=== PATIENT | female | born 1960 | race Caucasian/White ===

== ENCOUNTER → 2017-03-08 | Outpatient (CLI) | payer BC ==
[2014-05-17 05:20] VITALS: BP 122/64
[~2017-03-08] MED LIST: METO100T5 PO; MULT-460 PO; VALS1TAB14 PO; probiotic
--- NOTE | 2017-03-08 13:23 | CARD ---
APPROVED REPORT EXAM: Two-dimensional and M-mode echocardiogram with Doppler and color Doppler. Other Information Quality : Good Rhythm : PVC's INDICATION Hypertension/HCVD Murmur 2D DIMENSIONS RVDd2.8 (2.9-3.5cm)Left Atrium(2D)3.2 (1.6-4.0cm) IVSd1.3 (0.7-1.1cm)Aortic Root(2D)2.7 (2.0-3.7cm) LVDd5.2 (3.9-5.9cm)LVOT Diameter2.2 (1.8-2.4cm) PWd1.1 (0.7-1.1cm)LVDs4.2 (2.5-4.0cm) FS (%) 19.8 %SV53.0 ml LVEF(%)45.0 (>50%) Aortic Valve AoV Peak Zeus.143.4cm/sAoV VTI29.6cm AO Peak GR.8.2mmHgLVOT Peak Zeus.74.3cm/s LVOT VTI 17.02cmAO Mean GR.5mmHg ALEXIS (VMAX)2.34gk5CXP (VTI)2.22cm2 Mitral Valve MV E Pecurhve428.5cm/sMV DECEL [id number] MV A Hvbroojq486.4cm/sMV MGD82qk E/A Ratio0.9MVA (PHT)3.43cm2 TDI E/Lateral E'16.2E/Medial E'20.1 Tricuspid Valve TR P. Tpinksxp380ke/sRAP SVSJBLYG4qdCr TR Peak Gr.91wnSdDBZT65okRj Pulmonary Vein S1 Tvmqvref71.9cm/sD2 Fwtosqdl49.4cm/s LEFT VENTRICLE The left ventricle is normal size. There is mild concentric left ventricular hypertrophy. The Ejectio n Fraction is low normal. EF 50-55%. Frequent PVC's and PAC's noted limiting accuracy of EF estimatio n. EF no lower than 45% Grossly normal wall motion. Transmitral Doppler flow pattern is Grade I-abnor mal relaxation pattern. RIGHT VENTRICLE The right ventricle is normal size. The right ventricular systolic function is normal. ATRIA The left atrium size is normal. The right atrium size is normal. The interatrial septum is intact wit h no evidence for an atrial septal defect or patent foramen ovale as noted on 2-D or Doppler imaging. AORTIC VALVE The aortic valve is normal in structure and function. Doppler and Color Flow revealed no significant aortic regurgitation. There is no significant aortic valvular stenosis. MITRAL VALVE The mitral valve is normal in structure and function. There is no evidence of mitral valve prolapse. There is no mitral valve stenosis. Doppler and Color-flow revealed trace mitral regurgitation. TRICUSPID VALVE The tricuspid valve is normal in structure and function. Doppler and Color Flow revealed trace tricus pid regurgitation. The PA pressure was estimated at 30 mmHg. There is no tricuspid valve stenosis. PULMONIC VALVE The pulmonary valve is normal in structure and function. Doppler and Color Flow revealed trace pulmon ic valvular regurgitation. There is no pulmonic valvular stenosis. GREAT VESSELS The aortic root is normal in size. The ascending aorta is normal in size. The IVC is normal in size a nd collapses >50% with inspiration. PERICARDIAL EFFUSION There is no evidence of significant pericardial effusion. Critical Notification Critical Value: No <Conclusion> The Ejection Fraction is low normal. EF 50-55%. Frequent PVC's and PAC's noted limiting accuracy of E F estimation. EF no lower than 45%
== END | disposition home or self-care (01) ==
LOC: ECHO 08:44
PROVIDERS: ATTEND Internal Medicine Cardiovascular Disease
DX: I08.1 Rheumatic disorders of both mitral and tricuspid valves (principal); R01.1 Cardiac murmur, unspecified
CPT/HCPCS: 93306

== ENCOUNTER → 2018-09-14 | Outpatient (CLI) | payer BC ==
[2014-05-17 05:20] VITALS: BP 122/64
[2018-09-14 11:15] LABS: CHOLESTEROL/HDL RATIO 4.2
== END | disposition home or self-care (01) ==
LOC: LAB 09:45
PROVIDERS: ATTEND Internal Medicine Cardiovascular Disease
DX: I10 Essential (primary) hypertension (principal); E78.49 Other hyperlipidemia
CPT/HCPCS: 36415; 80061

== ENCOUNTER 2019-10-30 13:14 | Inpatient (IN) | payer BC ==
[~2019-10-30] VITALS: Ht 162.6 cm; Wt 83.8 kg
[2019-10-30] MEDS ORDERED: fentaNYL PF VIAL 100 MCG/2 ML VIAL IVP PRN (14:15)
[2019-10-30] MEDS ORDERED: ONDANSETRON PF 4 MG/2 ML VIAL. IVP PRN (14:15)
[2019-10-30 14:46] LABS: HEMATOCRIT 41.8 % (36.0-47.0); HEMOGLOBIN 13.8 g/dL (12.0-15.5); RED BLOOD COUNT 4.67 x10^6/uL (3.50-5.40); RED CELL DISTRIBUTION WIDTH 13.5 % (11.5-14.5); WHITE BLOOD COUNT 11.2 x10^3/uL (4.0-11.0)
[2019-10-30 15:00] VITALS: BP 140/95
[2019-10-30 15:05] LABS: ALBUMIN 3.1 g/dL (3.4-5.0); ALBUMIN/GLOBULIN RATIO 0.7 (1.0-1.7); CREATININE 0.9 mg/dL (0.6-1.0); GFR 63.9; POTASSIUM 3.8 mmol/L (3.5-5.1); TOTAL BILIRUBIN 0.3 mg/dL (0.2-1.0); TOTAL PROTEIN 7.5 g/dL (6.4-8.2)
[2019-10-30] MEDS: POTASSIUM CL 20MEQ D5-0.45NACL 1,000 ML IV SCH (15:20)
[2019-10-30 19:00] VITALS: BP 122/87
[2019-10-30 23:00] VITALS: BP 131/85
[2019-10-31] MEDS: POTASSIUM CL 20MEQ D5-0.45NACL 1,000 ML IV SCH ×2 (02:05→08:00)
[2019-10-31 03:00] VITALS: BP 131/79
[2019-10-31 07:00] VITALS: BP 146/91
--- NOTE | 2019-10-31 09:10 | NUR ---
SW following. Discussed with RN, pt is from home , currently on IV abx. SW will continue to follow.
--- NOTE | 2019-10-31 10:57 | HP ---
ADMIT DATE: HISTORY OF PRESENT ILLNESS: The patient is a 59-year-old female patient who apparently was seen initially about 10 days ago for urinary tract infection, dysuria, frequency and fever. She went to our next care clinic. At that time, her temperature was also high up to 204. She was started on nitrofurantoin. She took it for 2 days and then the third day, it was about 10 days ago she was seen by Vero Esparza at the ____ and was started on Cipro 500 mg twice a day, however, she continued to have back pain and dysuria and frequency. She has had a CT scan of the abdomen that was without contrast, which showed that she has bilateral renal cortical lesions compatible with cyst and present at the inferior border of the left kidney in the area of ill-defined mass-like fullness, nonenhancing 3 cm lesion is seen with surrounding parenchymal hyperenhancement and perirenal soft tissue stranding. The impression that the patient has diagnosed with left renal abscess and I spoke with Dr. Russo and given the small size about 3 cm according to him, it would be difficult to drain this, but he recommended starting her on IV antibiotic. Therefore, the patient was admitted directly to [facility] and I did start her on Levaquin not knowing that she was treated with ciprofloxacin without much improvement. I did consult the Infectious Disease specialist to assist with the management. PAST MEDICAL HISTORY: Significant for hypertension, questionable fatty liver. She said that she was admitted here before and at that time, she has had her hysterectomy and cholecystectomy and apparently at that time, she has had a CT scan of the abdomen and pelvis and according to her, she was told she has a mass, although she cannot remember specifically where it was seen before. PAST SURGICAL HISTORY: Significant for cholecystectomy as well as total abdominal hysterectomy. ALLERGIES: SHE IS ALLERGIC TO CEPHALEXIN, ACETAMINOPHEN, AND OXYCODONE. MEDICATIONS: She is currently on following medications: She is on metoprolol succinate 100 mg once a day, losartan/hydrochlorothiazide 660/25 one tablet once a day, and multivitamin with mineral 1 tablet once a day. FAMILY HISTORY: She has one brother older at age of 64 and has coronary artery disease and some form of viral cardiomyopathy. Father still alive at age of 83 and has permanent pacemaker and possible stents. Mother is alive at age of 81 and she has kidney cancer. SOCIAL HISTORY: She is , has a daughter and a son. She never smoked, does not drink alcohol or use any recreational drugs. 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 REVIEW OF SYSTEMS: As per history of present illness. PHYSICAL EXAMINATION: GENERAL: When I examined her on arrival, she looked well and was clearly in no apparent respiratory distress. No pallor, jaundice, cyanosis or thyromegaly. No jugular venous distention. No limb edema. VITAL SIGNS: Her heart rate was 108, blood pressure was 122/87, temperature was 98.3, respiratory rate was 18 and oxygen saturation was 97% on room air. HEAD, EYES, EARS, NOSE AND THROAT: Normocephalic, atraumatic. NECK: Supple. HEART: Showed normal first and second heart sounds. No gallop or murmur. CHEST: Clear to auscultation. No crepitation or rhonchi. ABDOMEN: Distended, soft, nontender. No guarding or rigidity. No organomegaly. All hernial orifice intact. Bowel sounds normal. NEUROLOGIC: She was awake, alert, responding appropriately. All cranial nerves intact. Moves extremities without difficulty. She ambulates without assistance or assistive devices. LABORATORY DATA: Showed a white cell count was slightly elevated at 11,200, hemoglobin 13.8, hematocrit 41.8, MCV 89 and platelet count of 370,000. Her chemistry showed a serum sodium 139, potassium 3.8, chloride 104, bicarbonate 24, anion gap of 11, BUN 12, creatinine 0.9, estimated GFR was 64 mL per minute, her glucose 130, calcium was 9. Total bilirubin, AST, ALT, alkaline phosphatase were normal. Total protein 7.5, albumin was 3.1. ASSESSMENT AND PLAN: In summary, this is a 59-year-old female patient who has had received 2 courses of antibiotic for presumed urinary tract infection. She had 2 CT scans, one without contrast which showed that she has a cyst in her lower pole of the left kidney. Second one showed that she has what seems to be an abscess in her left kidney. I did start her on IV Levaquin as well as IV fluid. I did consult the Infectious Disease specialist. She was treated already by ciprofloxacin. I am not sure Levaquin was the right choice as I was not aware that she was treated with Cipro. I did speak with Dr. Russo who thinks that this is small for drainage, but if necessary he can drain it. DENNIS SANDOVAL MD DR: CHRISTIANO/kyler JOB#: [id number] / [id number]
[2019-10-31 11:00] VITALS: BP 133/95
[2019-10-31] MEDS ORDERED: VANCOMYCIN 2 GM in IV NORMAL SALINE 500ML BAG 500 ML IV ONE (11:30)
[2019-10-31] MEDS: PIPERACILLIN/TAZOBACTAM 3.375 GM in IV NORMAL SALINE 50ML 50 ML IV SCH ×2 (12:28→18:00)
[2019-10-31] MEDS: VANCOMYCIN PER PHARMACY MC PRN (13:02)
--- NOTE | 2019-10-31 13:03 | NUR ---
Pharmacy Vancomycin Dosing Note S:Consulted to monitor and dose vancomycin started 10/31/19. O:KIM VOSS is a 59 year old F with Empiric UTI . Height: 5 feet, 4 inches Weight: 83.0 kg Ridge Body Weight: 54.70 Adjusted Body Weight: 66.02 Dosing Weight: Actual Other Antibiotics: zosyn LABS: Last BUN: Last Creatinine: 0.9 Creatinine Clearance: 69 mL/min Last WBC: 11.2 Last Procalcitonin: Tmax (past 24 hours): Microbiology: I/O: Drug Levels: Last level: on at Last dose given 10/31/19 at 1230 Vancomycin Dosing: Loading Dose: 2000 mg x1 Dosing Weight: Actual Target Trough: 15-20 A: Based on: weight and renal function, start vancomycin 2gm iv bolus; then, P: 1. Begin Vancomycin 1250 mg IV q12h 2. Follow up Trough level on 11/02/19 at 1130 3. Pharmacy will continue to monitor, follow and adjust therapy as needed. ARNIE RAMIREZ [facility], 10/31/19 [id number]
[2019-10-31 13:27] LABS: BILIRUBIN,URINE NEGATIVE (NEG); CLARITY,URINE CLEAR; COLOR,URINE YELLOW; NITRITE,URINE NEGATIVE (NEG); PROTEIN,URINE NEGATIVE (NEG-TRACE); UROBILINOGEN,URINE 0.2 mg/dL (0.2 mg/dL)
[2019-10-31 13:43] LABS: BACTERIA,URINE 0 /HPF (0-FEW); RBC,URINE 0 /HPF (0-2); SQUAMOUS EPITHELIAL CELL,UR OCC /LPF
--- NOTE | 2019-10-31 14:08 | RAD ---
RENAL COMPLETE BILATERAL History: Left kidney mass on CT. Comparison: October 30, 2019 Procedure: Transabdominal ultrasound images are obtained of the kidneys and bladder. Findings: Right kidney: measures 11.9 x 5.6 x 5.2 cm. No hydronephrosis. Multiple right renal cysts largest measures 2.4 x 2.2 x 2.67 m. Left kidney: measures 11.9 x 4.7 x 5.6 cm. No hydronephrosis. Complex left inferior renal lesion measures 3.9 x 3.7 x 4.6 cm, appears increased in size compared to prior although difficult to compare given differences in technique. There are hyperechoic foci within the lesion, may represent gas. Multiple left renal simple cysts largest measures 2.6 cm. Urinary bladder: No urinary bladder wall thickening. Bilateral ureteral jets were identified. Distal aorta and IVC not well seen due to overlying bowel gas. Nonaneurysmal proximal aorta. Patent proximal IVC. IMPRESSION: 1. Complex left inferior renal lesion with hyperechoic foci, may represent gas. The lesion appears increased compared to prior CT although difficult to compare given differences in technique. Findings concerning for abscess. Recommend follow-up to ensure resolution. 2. Bilateral renal cysts. Electronically signed by: Douglas Guy DO (10/31/2019 2:05 PM) [id number]
[2019-10-31 15:00] VITALS: BP 116/78
[2019-10-31 19:00] VITALS: BP 133/73
--- NOTE | 2019-10-31 22:24 | CONS ---
DATE OF CONSULTATION: 10/31/2019 REFERRING PHYSICIAN: Dr. Rouse. REASON FOR CONSULTATION: Renal mass, possible renal abscess. HISTORY OF PRESENT ILLNESS: A 59-year-old female who follows up with the PA at [facility], was sent here for admission for renal mass, possible renal abscess. The patient has fever of up to 102 about 2-1/2 weeks ago. She had abdominal pain and nausea. She had a UA done at next care, was told that she has proteinuria. She was given Macrodantin. Her symptoms persisted. She was seen by the PA in the office on 10/22/2019. UA was ordered on the , which was reported negative for protein, leukocyte esterase, and blood. White count was normal at 9.8. LFTs were normal. The patient had a chest x-ray done, which was reported with mild diffuse increased interstitial opacity, chronic interstitial changes. She had CT without contrast, which showed an ill-defined 4 cm mass-like lesion at the left renal lower pole. The patient underwent CT of the abdomen and pelvis with contrast, which showed inferior pole left renal lesion, most likely represents 3 cm renal abscess. Followup after appropriate medical intervention therapy would be helpful in confirming resolution. The patient was started on ciprofloxacin. Here she is started on Levaquin. Her white count here is at 11.2. Blood cultures and urine cultures are done, pending. UA is not available for my review. Creatinine is at 0.9, albumin of 3.1. Today, the patient still has cough, dry. No headache, no nausea, no vomiting, no diarrhea, continues to have abdominal pain, which is mainly on the right upper quadrant and right lower quadrant. PAST MEDICAL HISTORY: Hypertension. PAST SURGICAL HISTORY: Hysterectomy, cholecystectomy. FAMILY HISTORY: As per HPI. CURRENT MEDICATIONS: Levaquin. Other medications reviewed in medication list. ALLERGIES: CEPHALEXIN CAUSES STOMACH PAIN; ACETAMINOPHEN, NAUSEA AND VOMITING; OXYCODONE, NAUSEA AND VOMITING. REVIEW OF SYSTEMS: Negative except for above in HPI. SOCIAL HISTORY: Nonsmoker, . at bedside. PHYSICAL EXAMINATION: VITAL SIGNS: Temperature 98.2, pulse 110, respiratory rate 16, blood pressure 140/95, oxygen saturation 96% on room air. GENERAL: Alert, oriented x 3 female, pleasant, ambulating in the room, in no acute distress. HEENT: Normocephalic, atraumatic, anicteric. No thrush. NECK: Supple, no JVD. LUNGS: Clear. No wheezing. No accessory muscle use. HEART: S1, S2. No gallops or murmurs. ABDOMEN: Soft, mild tenderness in the right lower quadrant and mid quadrant, some in the right upper quadrant. No rebound, no guarding. BACK: Reveals normal curvature, mild CVA tenderness. EXTREMITIES: No edema, no cyanosis. DERMATOLOGIC: Warm, dry. No generalized rash. PSYCHIATRIC: Cooperative, appropriate mood and affect. LABORATORY DATA: WBC 11.2, hemoglobin 13.8, hematocrit 41.8, platelets 370. Sodium 139, potassium 3.8, chloride 104, bicarbonate 24, BUN 12, creatinine 0.9, total bilirubin 0.3, glucose 130. LFTs are within normal limits. Albumin is 3.1. IMAGIN. None here. Chest x-ray as above. 2. CT abdomen and pelvis without as above. 3. CT abdomen and pelvis with IV contrast as above. IMPRESSION: 1. Febrile illness prior to admission, none here.Source likely 2. Abdominal pain, nausea with a CT abdomen and pelvis with contrast at osh showing left renal mass. Differential is broad infection versus noninfectious. 3. Left renal mass.Working diagnosis of renal abscess 4. History of proteinuria at outside facility. 5. Hypertension. 6. Status post cholecystectomy and hysterectomy. 7. Chronic cough RECOMMENDATIONS: 1. Discontinue Levaquin. 2. Start empiric IV vancomycin and Zosyn. 3. Monitor renal functions closely. 4. Urinalysis not available,f/u urine culture and blood culture. 5. Repeat UA and urine culture if not done already. 6. The patient will need Urology evaluation. Discussed with at bedside. Thank you, Dr. Rouse, for consulting Infectious Disease to participate in this patient's care. If you have any questions, do not hesitate to contact me. SANDRA NORRIS MD DR: LUIGI/kyler JOB#: [id number] / [id number] [place]
[2019-10-31 23:00] VITALS: BP 139/70
[2019-11-01] VITALS (18 sets, daily range): BP systolic 113–148; BP diastolic 70–97
[2019-11-01] MEDS: PIPERACILLIN/TAZOBACTAM 3.375 GM in IV NORMAL SALINE 50ML 50 ML IV SCH ×4 (00:09→16:18)
[2019-11-01] MEDS: POTASSIUM CL 20MEQ D5-0.45NACL 1,000 ML IV SCH ×3 (03:28→15:20)
[2019-11-01 06:01] LABS: ALBUMIN 2.9 g/dL (3.4-5.0); ALBUMIN/GLOBULIN RATIO 0.9 (1.0-1.7); C-REACTIVE PROTEIN 13.9 mg/L (0-3.3); CALCIUM 8.7 mg/dL (8.5-10.1); GFR 56.6; POTASSIUM 4.8 mmol/L (3.5-5.1); TOTAL BILIRUBIN 0.5 mg/dL (0.2-1.0); TOTAL PROTEIN 6.3 g/dL (6.4-8.2)
[2019-11-01 06:04] LABS: BASO # 0.1 x10^3/uL (0.0-0.2); BASO % 1 % (0-3); EOS # 0.2 x10^3/uL (0.0-0.7); EOS % 3 % (0-3); HEMATOCRIT 40.1 % (36.0-47.0); HEMOGLOBIN 13.2 g/dL (12.0-15.5); LYMPH # 2.4 x10^3/uL (1.0-4.8); LYMPH % 24 % (24-48); MEAN CORPUSCULAR HEMOGLOBIN 30 pg (25-35); MEAN CORPUSCULAR HGB CONC 33 g/dL (31-37); MEAN CORPUSCULAR VOLUME 90 fL (79-100); MONO # 0.6 x10^3/uL (0.0-1.1); MONO % 7 % (0-9); NEUT # 6.6 x10^3/uL (1.8-7.7); NEUT % 66 % (31-73); PLATELET COUNT 376 x10^3/uL (140-400); RED BLOOD COUNT 4.47 x10^6/uL (3.50-5.40); RED CELL DISTRIBUTION WIDTH 13.3 % (11.5-14.5); WHITE BLOOD COUNT 9.9 x10^3/uL (4.0-11.0)
--- NOTE | 2019-11-01 08:24 | NUR ---
SW following. Discussed with RN. Pt on IV vanc and zosyn. Cultures pending. SW will continue to follow.
--- NOTE | 2019-11-01 09:40 | PN ---
DATE: 11/01/2019 SUBJECTIVE: The patient is sitting in her recliner comfortably, in no apparent distress. On questioning her, she said she has multiple loose bowel movements, but denied any other complaint. PHYSICAL EXAMINATION: GENERAL: When I examined her this morning, she looked well and was clearly in no apparent respiratory distress. No pallor, jaundice, cyanosis or thyromegaly. No jugular venous distention. No lower limb edema. VITAL SIGNS: Her heart rate was 90, blood pressure 118/84, temperature 97.5, respiratory rate was 18 and oxygen saturation was 96%. HEAD, EYES, EARS, NOSE AND THROAT: Showed normocephalic, atraumatic. NECK: Supple. HEART: Showed normal first and second heart sounds with no gallop, rub or murmur. CHEST: Clear to auscultation. No crepitation or rhonchi. ABDOMEN: Distended, soft, nontender. NEUROLOGIC: She is grossly intact. Her intake was 1200, no output was recorded. LABORATORY DATA: Her lab work this morning showed a serum sodium 142, potassium 4.8, chloride 106, bicarbonate 26, anion gap of 10, BUN 11, creatinine 1, estimated GFR was 56 mL per minute. Her glucose 120, calcium was 8.7. Total bilirubin, AST, ALT, alkaline phosphatase were normal. Total protein 6.3, albumin 2.9. C-reactive protein was 13.9 mg/dL. Her white cell count was 9900, hemoglobin 13, hematocrit 40, MCV 90 and platelet count 376,000. Her sed rate was 35 mm per hour. Urinalysis was essentially unremarkable. The urine was negative for nitrite and leukocyte esterase. There are no rbc's, 1-4 wbc's and no bacteria. PLAN: To obviously continue with IV vancomycin and Zosyn. I will start her on lactobacillus rhamnosus and send stool for C. diff. DENNIS SANDOVAL MD DR: CHRISTIANO/kyler JOB#: [id number] / [id number]
[2019-11-01] MEDS: VANCOMYCIN PER PHARMACY MC PRN (10:00)
--- NOTE | 2019-11-01 10:03 | PDOC ---
Infectious Disease Note Subjective: Subjective pt cont to have rt lower quad abdominal pain diarrhea no n/v some cough ,chronic Vital Signs: Vital Signs Vital Signs Date Time Temp Pulse Resp B/P (MAP) Pulse Ox O2 Delivery O2 Flow Rate FiO2 11/01/19 07:46 Room Air 11/01/19 07:00 97.5 90 18 118/84 (95) 96 97.5 10/31/19 20:00 97.0 Physical Exam: PHYSICAL EXAM GENERAL: Alert, oriented x 3 female, pleasant, ambulating in the room, in no acute distress. HEENT: Normocephalic, atraumatic, anicteric. No thrush. NECK: Supple, no JVD. LUNGS: Clear. No wheezing. No accessory muscle use. HEART: S1, S2. No gallops or murmurs. ABDOMEN: Soft, mild tenderness in the right lower quadrant and mid quadrant, some in the right upper quadrant. No rebound, no guarding. BACK: Reveals normal curvature, mild CVA tenderness. EXTREMITIES: No edema, no cyanosis. DERMATOLOGIC: Warm, dry. No generalized rash. PSYCHIATRIC: Cooperative, appropriate mood and affect. Medications: Inpatient Meds: Current Medications Medications (Trade) Dose Ordered Sig/Mell Start Time Stop Time Status Last Admin Dose Admin Fentanyl Citrate (Fentanyl 2ml Vial) 50 mcg PRN Q4HRS PRN 10/30/19 14:15 Lactobacillus Rhamnosus (Culturelle) 1 cap BID 11/01/19 21:00 Levofloxacin/ Dextrose 150 ml @ 100 mls/hr Q24H 10/30/19 15:00 10/31/19 11:05 DC 10/30/19 15:20 100 MLS/HR Ondansetron HCl (Zofran) 4 mg PRN Q4HRS PRN 10/30/19 14:15 Piperacillin Sod/ Tazobactam Sod 3.375 gm/Sodium Chloride 50 ml @ 100 mls/hr Q6HRS 10/31/19 12:00 11/01/19 05:24 100 MLS/HR Potassium Chloride/Dextrose/ Sod Cl 1,000 ml @ 100 mls/hr Q10H 10/30/19 14:45 11/01/19 08:32 100 MLS/HR Vancomycin HCl (Vanco Per Pharmacy) 1 each PRN DAILY PRN 10/31/19 11:15 10/31/19 13:02 1 EACH Vancomycin HCl (Vancomycin Trough Level) 1 each 1X ONCE 11/02/19 11:30 11/02/19 11:31 Vancomycin HCl 1.25 gm/Sodium Chloride 250 ml @ 167 mls/hr Q24H 11/01/19 12:00 Vancomycin HCl 2 gm/Sodium Chloride 500 ml @ 250 mls/hr 1X ONCE 10/31/19 11:30 10/31/19 13:29 DC 10/31/19 12:29 250 MLS/HR Labs: Lab Laboratory Tests Test 10/31/19 13:00 11/01/19 04:45 Urine Color Yellow Urine Clarity Clear Urine pH 5.0 Urine Specific [place] 1.015 Urine Protein Negative mg/dL (NEG-TRACE) Urine Glucose (UA) Negative mg/dL (NEG) Urine Ketones (Stick) Negative mg/dL (NEG) Urine Blood Negative (NEG) Urine Nitrite Negative (NEG) Urine Bilirubin Negative (NEG) Urine Urobilinogen Dipstick 0.2 mg/dL (0.2 mg/dL) Urine Leukocyte Esterase Negative (NEG) Urine RBC 0 /HPF (0-2) Urine WBC 1-4 /HPF (0-4) Urine Squamous Epithelial Cells Occ /LPF Urine Bacteria 0 /HPF (0-FEW) Urine Mucus Slight /LPF White Blood Count 9.9 x10^3/uL (4.0-11.0) Red Blood Count 4.47 x10^6/uL (3.50-5.40) Hemoglobin 13.2 g/dL (12.0-15.5) Hematocrit 40.1 % (36.0-47.0) Mean Corpuscular Volume 90 fL (79-100) Mean Corpuscular Hemoglobin 30 pg (25-35) Mean Corpuscular Hemoglobin Concent 33 g/dL (31-37) Red Cell Distribution Width 13.3 % (11.5-14.5) Platelet Count 376 x10^3/uL (140-400) Neutrophils (%) (Auto) 66 % (31-73) Lymphocytes (%) (Auto) 24 % (24-48) Monocytes (%) (Auto) 7 % (0-9) Eosinophils (%) (Auto) 3 % (0-3) Basophils (%) (Auto) 1 % (0-3) Neutrophils # (Auto) 6.6 x10^3/uL (1.8-7.7) Lymphocytes # (Auto) 2.4 x10^3/uL (1.0-4.8) Monocytes # (Auto) 0.6 x10^3/uL (0.0-1.1) Eosinophils # (Auto) 0.2 x10^3/uL (0.0-0.7) Basophils # (Auto) 0.1 x10^3/uL (0.0-0.2) Erythrocyte Sedimentation Rate 35 (0-25) Sodium Level 142 mmol/L (136-145) Potassium Level 4.8 mmol/L (3.5-5.1) Chloride Level 106 mmol/L (98-107) Carbon Dioxide Level 26 mmol/L (21-32) Anion Gap 10 (6-14) Blood Urea Nitrogen 11 mg/dL (7-20) Creatinine 1.0 mg/dL (0.6-1.0) Estimated GFR (Cockcroft-Gault) 56.6 BUN/Creatinine Ratio 11 (6-20) Glucose Level 120 mg/dL (70-99) Calcium Level 8.7 mg/dL (8.5-10.1) Total Bilirubin 0.5 mg/dL (0.2-1.0) Aspartate Amino Transf (AST/SGOT) 15 U/L (15-37) Alanine Aminotransferase (ALT/SGPT) 23 U/L (14-59) Alkaline Phosphatase 75 U/L (46-116) C-Reactive Protein, Quantitative 13.9 mg/L (0-3.3) Total Protein 6.3 g/dL (6.4-8.2) Albumin 2.9 g/dL (3.4-5.0) Albumin/Globulin Ratio 0.9 (1.0-1.7) Objective: Assessment: 1. Febrile illness prior to admission, none here.Source likely 2. Abdominal pain, nausea with a CT abdomen and pelvis with contrast at osh showing left renal mass. Differential is broad infection versus noninfectious. 3. Left renal mass.Working diagnosis of renal abscess. U/S shows increase in lesion 4. History of proteinuria at outside facility. 5. Hypertension. 6. Status post cholecystectomy and hysterectomy. 7. Chronic cough 8. Diarrhea Plan: Plan of Care cont IV vancomycin and Zosyn. Monitor renal functions closely. f/u cult and labs consult IR to see if she would ba candidate for drainage The patient will need Urology evaluation. Discussed with DR Rouse D/SANDRA YEH RN, MD Nov 01, 2019 10:03
[2019-11-01 12:14] LABS: PROTHROMBIN TIME PATIENT 13.5 SEC (11.7-14.0)
[2019-11-01] MEDS: VANCOMYCIN 1.25 GM in IV NORMAL SALINE 250ML 250 ML IV SCH (12:59)
[2019-11-01] MEDS ORDERED: LIDOCAINE WITH 8.4% SOD BICARB 3 ML DISP.SYRIN. ONE (13:42)
[2019-11-01] MEDS ORDERED: MIDAZOLAM HCL/PF 2 MG/2 ML VIAL. ONE (13:52)
[2019-11-01] MEDS ORDERED: fentaNYL PF VIAL 100 MCG/2 ML VIAL ONE (13:53)
[2019-11-01] MEDS ORDERED: MIDAZOLAM HCL/PF 2 MG/2 ML VIAL. IV ONE (14:00)
[2019-11-01] MEDS ORDERED: LIDOCAINE WITH 8.4% SOD BICARB 3 ML DISP.SYRIN. IJ ONE (14:00)
[2019-11-01] MEDS ORDERED: fentaNYL PF VIAL 100 MCG/2 ML VIAL IV ONE (14:00)
[2019-11-01] MEDS ORDERED: GELATIN SPONGE SIZE 12-7MM SPONGE. ONE (14:28)
--- NOTE | 2019-11-01 15:00 | PDOC ---
Provider Note Provider Note IR NOTE CT guided aspiration inferior left renal abscess performed. No drain left in place. Collection appeared smaller today, but could be in part to due lack of IV contrast. 12 cc of bloody pus was aspirated. Cavity appears to be grossly decompressed. Cultures sent. KRISTOPHER FITCH MD Nov 01, 2019 15:00
[2019-11-01] MEDS: LACTOBACILLUS RHAMNOSUS GG 1 CAPSULE. PO SCH (20:11)
[2019-11-02] MEDS: PIPERACILLIN/TAZOBACTAM 3.375 GM in IV NORMAL SALINE 50ML 50 ML IV SCH ×4 (00:01→16:19)
[2019-11-02] MEDS: POTASSIUM CL 20MEQ D5-0.45NACL 1,000 ML IV SCH ×3 (01:16→16:19)
[2019-11-02 03:14] VITALS: BP 124/73
[2019-11-02 07:00] VITALS: BP 113/86
[2019-11-02] MEDS: LACTOBACILLUS RHAMNOSUS GG 1 CAPSULE. PO SCH ×2 (08:19→21:46)
--- NOTE | 2019-11-02 09:55 | PDOC ---
Infectious Disease Note Subjective: Subjective Pt says feels better today underwent ir drainage on 11/02 Denies any N/V some cough ,chronic but improving Vital Signs: Vital Signs Vital Signs Date Time Temp Pulse Resp B/P (MAP) Pulse Ox O2 Delivery O2 Flow Rate FiO2 11/02/19 07:24 Room Air 11/02/19 07:00 98.5 99 18 113/86 (95) 96 98.5 11/01/19 14:45 2.0 Physical Exam: PHYSICAL EXAM GENERAL: Alert, oriented x 3 female, pleasant, ambulating in the room, in no acute distress. HEENT: Normocephalic, atraumatic, anicteric. No thrush. NECK: Supple, no JVD. LUNGS: Clear. No wheezing. No accessory muscle use. HEART: S1, S2. No gallops or murmurs. ABDOMEN: Soft, mild tenderness in the right lower quadrant and mid quadrant, some in the right upper quadrant. No rebound, no guarding. BACK: Reveals normal curvature, mild CVA tenderness. EXTREMITIES: No edema, no cyanosis. DERMATOLOGIC: Warm, dry. No generalized rash. PSYCHIATRIC: Cooperative, appropriate mood and affect. Medications: Inpatient Meds: Current Medications Medications (Trade) Dose Ordered Sig/Mell Start Time Stop Time Status Last Admin Dose Admin Fentanyl Citrate (Fentanyl 2ml Vial) 100 mcg 1X ONCE 11/01/19 14:00 11/01/19 14:01 DC 11/01/19 14:00 50 MCG Gelatin (Gelfoam Size 12-7mm) 1 each STK-MED ONCE 11/01/19 14:28 11/01/19 14:28 DC Lactobacillus Rhamnosus (Culturelle) 1 cap BID 11/01/19 21:00 11/02/19 08:19 1 CAP Levofloxacin/ Dextrose 150 ml @ 100 mls/hr Q24H 10/30/19 15:00 10/31/19 11:05 DC 10/30/19 15:20 100 MLS/HR Lidocaine HCl (Buffered Lidocaine 1%) 3 ml 1X ONCE 11/01/19 14:00 11/01/19 14:01 DC 11/01/19 14:00 8 ML Midazolam HCl (Versed) 2 mg 1X ONCE 11/01/19 14:00 11/01/19 14:01 DC 11/01/19 14:00 1 MG Ondansetron HCl (Zofran) 4 mg PRN Q4HRS PRN 10/30/19 14:15 Piperacillin Sod/ Tazobactam Sod 3.375 gm/Sodium Chloride 50 ml @ 100 mls/hr Q6HRS 10/31/19 12:00 11/02/19 00:01 100 MLS/HR Potassium Chloride/Dextrose/ Sod Cl 1,000 ml @ 100 mls/hr Q10H 10/30/19 14:45 11/02/19 01:16 100 MLS/HR Vancomycin HCl (Vanco Per Pharmacy) 1 each PRN DAILY PRN 10/31/19 11:15 11/01/19 10:00 1 EACH Vancomycin HCl (Vancomycin Trough Level) 1 each 1X ONCE 11/02/19 11:30 11/02/19 11:31 Vancomycin HCl 1.25 gm/Sodium Chloride 250 ml @ 167 mls/hr Q24H 11/01/19 12:00 11/01/19 12:59 167 MLS/HR Vancomycin HCl 2 gm/Sodium Chloride 500 ml @ 250 mls/hr 1X ONCE 10/31/19 11:30 10/31/19 13:29 DC 10/31/19 12:29 250 MLS/HR Labs: Lab Laboratory Tests Test 11/01/19 11:00 11/01/19 11:50 Clostridium difficile Toxin B Gene Negative (Negative) Prothrombin Time 13.5 SEC (11.7-14.0) Prothromb Time International Ratio 1.1 (0.8-1.1) Activated Partial Thromboplast Time 29 SEC (24-38) Objective: Assessment: 1. Febrile illness prior to admission, none here.Source likely 2. Abdominal pain, nausea with a CT abdomen and pelvis with contrast at osh showing left renal mass. Differential is broad infection versus noninfectious. 3. Left renal mass.Working diagnosis of renal abscess. U/S shows increase in lesion 2/6 s/p IR drainage of purulent bloody drainage cult pending 4. History of proteinuria at outside facility.none here 5. Hypertension. 6. Status post cholecystectomy and hysterectomy. 7. Chronic cough 8. Diarrhea Plan: Plan of Care Cont IV vancomycin and Zosyn. Monitor renal functions closely. f/u cult and labs picc line c diff negative cults pending Pt will need urology evaluation ,not available at this center D/W Discussed with DR Rouse D/W SANDRA MILLER MD Nov 02, 2019 09:55
[2019-11-02] MEDS: VANCOMYCIN 1.25 GM in IV NORMAL SALINE 250ML 250 ML IV SCH (10:25)
[2019-11-02 11:00] VITALS: BP 124/86
--- NOTE | 2019-11-02 11:16 | PN ---
DATE: 11/02/2019 SUBJECTIVE: The patient is sitting comfortably in her recliner, in no apparent distress. On questioning her, denied any complaint. She apparently has had an ultrasound done yesterday, which showed that there is complex left inferior renal lesion with hyperechoic foci, may represent gas. The lesion appears increased compared to prior CT, although difficult to compare given differences in technique. Findings are concerning for an abscess. Apparently, the patient underwent drainage of that abscess by Dr. Gallegos yesterday. She obviously continued to be on IV vancomycin as well as piperacillin and tazobactam. PHYSICAL EXAMINATION: GENERAL: When I saw her today, she looked well and was clearly in no apparent respiratory distress. No pallor, jaundice, cyanosis or thyromegaly. No jugular venous distension. No limb edema. VITAL SIGNS: Her heart rate was 99, blood pressure 113/86, temperature 98.5, respiratory rate was 18, and oxygen saturation was 96%. The rest of exam is stable. LABORATORY DATA: As of yesterday showed a white cell count 9900, hemoglobin 13, hematocrit 40, MCV 90 and platelet count of 176,000. Her chemistry also showed a BUN of 11, creatinine 1. Prothrombin time, INR and aPTT are normal. Urinalysis essentially unremarkable and her C diff toxins were negative. ASSESSMENT AND PLAN: Left renal abscess, status post drainage. Continue with IV antibiotic. DENNIS SANDOVAL MD DR: CHRISTIANO/kyler JOB#: [id number] / [id number]
--- NOTE | 2019-11-02 12:16 | RAD ---
CT-guided aspiration, and inferior left renal abscess 11/01/2019 INDICATION: Palpable inferior left renal abscess Discussion: The procedure was explained in its entirety to the patient or the patients designated fuels sales representative by a member of the treatment team, including a discussion of the risks, benefits and commonly accepted alternatives to the procedure, as well as the expected consequences of no therapy whatsoever. Discussion of the risks included, but was not limited to, those that are most frequent and those that are rare but possibly severe or life-threatening, as well as the possibility of unforeseen complications. All elements of maximal sterile barrier technique including the use of a cap, mask, sterile gown, sterile gloves, large sterile sheet, appropriate hand hygiene, and 2% chlorhexidine for cutaneous antisepsis (or acceptable alternative antiseptic per current guidelines) were followed for this procedure. CT imaging was obtained redemonstrating a hypodense area in the inferior left kidney. This was targeted for aspiration. Appeared somewhat smaller than on comparison exams. 1% lidocaine was administered for local anesthesia. Under intermittent CT guidance a 17-gauge needle was advanced into the collection. 12 to 13 cc of bloody/purulent aspirate was obtained. Repeat CT demonstrates the area to be essentially completely decompressed, though evaluation is limited without contrast. Guiding needles removed. Manual pressure was held. Repeat CT demonstrates no hemorrhage or other immediate complication. The patient tolerated the procedure well. The procedures performed under conscious sedation including continuous cardiopulmonary monitoring via dedicated sedation nurse. [id number] sedation time: 30 minutes Impression: CT-guided aspiration, small left renal abscess
[2019-11-02 12:41] LABS: VANC TR 6.3 mcg/mL (10.0-20.0)
[2019-11-02] MEDS: VANCOMYCIN PER PHARMACY MC PRN (12:55)
--- NOTE | 2019-11-02 12:56 | NUR ---
Pharmacy Vancomycin Dosing Note S:Consulted to monitor and dose vancomycin started 10/31/19. O:KIM VOSS is a 59 year old F with Empiric UTI . Height: 5 feet, 4 inches Weight: 83.8 kg [place] Body Weight: 54.70 Adjusted Body Weight: 66.34 Dosing Weight: Actual Other Antibiotics: zosyn LABS: Last BUN: 11 Last Creatinine: 1.0 Creatinine Clearance: 62 mL/min Last WBC: 9.9 Last Procalcitonin: Tmax (past 24 hours): 98.7 Microbiology: NGTD I/O: 3740/2 voids Drug Levels: Last level: on at Last dose given 10/31/19 at 1230 Vancomycin Dosing: Loading Dose: 2000 mg x1 Dosing Weight: Actual Target Trough: 15-20 A: Based on: LEVEL P: 1. Change Vancomycin 1250 mg IV q12h 2. Follow up Trough level NEEDED. 3. Pharmacy will continue to monitor, follow and adjust therapy as needed. ARNIE RAMIREZ [facility], 11/02/19 1354
[2019-11-02] MEDS ORDERED: VANCOMYCIN 1.25 GM in IV NORMAL SALINE 250ML 250 ML IV SCH (13:00)
[2019-11-02] MEDS ORDERED: LIDOCAINE WITH 8.4% SOD BICARB 3 ML DISP.SYRIN. IJ ONE (14:45)
[2019-11-02 15:00] VITALS: BP 142/94
[2019-11-02] MEDS ORDERED: DAPTOmycin (GENERIC) IVPB 500 MG in IV NORMAL SALINE 50ML 50 ML IV ONE (15:00)
--- NOTE | 2019-11-02 15:27 | RAD ---
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 The right upper extremity was prepped and draped using sterile barrier technique. All elements of maximal sterile barrier technique including the use of a cap, mask, sterile gown, sterile gloves, large sterile sheet, appropriate hand hygiene, and 2% chlorhexidine for cutaneous antisepsis (or acceptable alternative antiseptic per current guidelines) were followed for this procedure.. Real-time ultrasound demonstrated a patent right basilic vein which was prepped and draped in usual sterile fashion. 1% lidocaine used for local anesthesia. Using real-time ultrasound guidance the access needle percutaneously punctured the selected right basilic vein. Reference ultrasound images were saved to the medical record. A guidewire was advanced through the needle to the cavoatrial junction, and a peel-away sheath placed. The catheter was cut to length and inserted through the peel-away sheath such that its tip is at the cavoatrial junction. The wire and sheath were removed, and the catheter secured in place, and a sterile dressing was applied. Catheter was found to flush and aspirate normally. No immediate complications are identified. FLUORO TIME: 0.7 DOSE AREA PRODUCT: 2 Gycm2 Impression: Ultrasound and fluoroscopically guided placement of a right upper extremity PICC line.
[2019-11-02 19:00] VITALS: BP 131/76
[2019-11-02] MEDS: ACETAMINOPHEN 325 MG TABLET. PO PRN (21:45)
[2019-11-02 23:00] VITALS: BP 135/79
--- NOTE | 2019-11-03 00:35 | NUR ---
NURSING NOTE Pt care assumed at this time. Pt is A/Ox4, resting in bed. Pt denies need for pain medication at this time. States the tylenol she received earlier worked well. Denies other needs. Will monitor.
[2019-11-03] MEDS: PIPERACILLIN/TAZOBACTAM 3.375 GM in IV NORMAL SALINE 50ML 50 ML IV SCH ×4 (00:41→18:00)
--- NOTE | 2019-11-03 01:46 | NUR ---
Verified with pt. about not being allergic to tylenol. She has tolerated tylenol well before. RN took tylenol off allergy list.
[2019-11-03 03:00] VITALS: BP 125/78
[2019-11-03] MEDS: POTASSIUM CL 20MEQ D5-0.45NACL 1,000 ML IV SCH (03:05)
[2019-11-03] MEDS: ACETAMINOPHEN 325 MG TABLET. PO PRN (03:15)
[2019-11-03 06:38] LABS: HEMATOCRIT 41.8 % (36.0-47.0); RED BLOOD COUNT 4.67 x10^6/uL (3.50-5.40); RED CELL DISTRIBUTION WIDTH 13.6 % (11.5-14.5); WHITE BLOOD COUNT 8.9 x10^3/uL (4.0-11.0)
[2019-11-03 06:47] LABS: CALCIUM 9.3 mg/dL (8.5-10.1); CREATININE 1.1 mg/dL (0.6-1.0); GFR 50.7; POTASSIUM 4.7 mmol/L (3.5-5.1)
[2019-11-03 07:00] VITALS: BP 130/86
[2019-11-03] MEDS ORDERED: DAPTOmycin (GENERIC) IVPB 500 MG in IV NORMAL SALINE 50ML 50 ML IV ONE (08:00)
[2019-11-03] MEDS: LACTOBACILLUS RHAMNOSUS GG 1 CAPSULE. PO SCH (09:39)
[2019-11-03 11:00] VITALS: BP 141/96
--- NOTE | 2019-11-03 11:24 | PDOC ---
Infectious Disease Note Subjective: Subjective Pt says feels better today underwent ir drainage on 11/02 Denies any N/V some cough ,chronic but improving Vital Signs: Vital Signs Vital Signs Date Time Temp Pulse Resp B/P (MAP) Pulse Ox O2 Delivery O2 Flow Rate FiO2 11/03/19 07:00 98.2 95 18 130/86 (101) 95 Room Air 98.2 Physical Exam: PHYSICAL EXAM GENERAL: Alert, oriented x 3 female, pleasant, ambulating in the room, in no acute distress. HEENT: Normocephalic, atraumatic, anicteric. No thrush. NECK: Supple, no JVD. LUNGS: Clear. No wheezing. No accessory muscle use. HEART: S1, S2. No gallops or murmurs. ABDOMEN: Soft, mild tenderness in the right lower quadrant and mid quadrant, some in the right upper quadrant. No rebound, no guarding. BACK: Reveals normal curvature, mild CVA tenderness. EXTREMITIES: No edema, no cyanosis. DERMATOLOGIC: Warm, dry. No generalized rash. PSYCHIATRIC: Cooperative, appropriate mood and affect. Medications: Inpatient Meds: Current Medications Medications (Trade) Dose Ordered Sig/Mell Start Time Stop Time Status Last Admin Dose Admin Acetaminophen (Tylenol) 650 mg PRN Q4HRS PRN 11/02/19 21:30 11/03/19 03:15 650 MG Daptomycin 500 mg/ Sodium Chloride 50 ml @ 100 mls/hr 1X ONCE 11/03/19 08:00 11/03/19 08:29 DC 11/03/19 09:39 100 MLS/HR Fentanyl Citrate (Fentanyl 2ml Vial) 100 mcg 1X ONCE 11/01/19 14:00 11/01/19 14:01 DC 11/01/19 14:00 50 MCG Gelatin (Gelfoam Size 12-7mm) 1 each STK-MED ONCE 11/01/19 14:28 11/01/19 14:28 DC Lactobacillus Rhamnosus (Culturelle) 1 cap BID 11/01/19 21:00 11/03/19 09:39 1 CAP Levofloxacin/ Dextrose 150 ml @ 100 mls/hr Q24H 10/30/19 15:00 10/31/19 11:05 DC 10/30/19 15:20 100 MLS/HR Lidocaine HCl (Buffered Lidocaine 1%) 3 ml 1X ONCE 11/02/19 14:45 2/7/20 14:47 DC 11/02/19 14:45 3 ML Midazolam HCl (Versed) 2 mg 1X ONCE 11/01/19 14:00 11/01/19 14:01 DC 11/01/19 14:00 1 MG Ondansetron HCl (Zofran) 4 mg PRN Q4HRS PRN 10/30/19 14:15 Piperacillin Sod/ Tazobactam Sod 3.375 gm/Sodium Chloride 50 ml @ 100 mls/hr Q6HRS 10/31/19 12:00 11/03/19 05:46 100 MLS/HR Potassium Chloride/Dextrose/ Sod Cl 1,000 ml @ 100 mls/hr Q10H 10/30/19 14:45 11/03/19 03:05 100 MLS/HR Vancomycin HCl (Vanco Per Pharmacy) 1 each PRN DAILY PRN 10/31/19 11:15 11/02/19 14:29 DC 11/02/19 12:55 1 EACH Vancomycin HCl (Vancomycin Trough Level) 1 each 1X ONCE 11/02/19 11:30 11/02/19 14:29 DC 11/02/19 11:30 1 EACH Vancomycin HCl 1.25 gm/Sodium Chloride 250 ml @ 167 mls/hr Q12H 11/02/19 13:00 11/02/19 14:29 DC Vancomycin HCl 2 gm/Sodium Chloride 500 ml @ 250 mls/hr 1X ONCE 10/31/19 11:30 10/31/19 13:29 DC 10/31/19 12:29 250 MLS/HR Labs: Lab Laboratory Tests Test 11/02/19 11:57 11/03/19 06:25 Vancomycin Level Trough 6.3 mcg/mL (10.0-20.0) Vancomycin Last Dose Date 11/01/19 Vancomycin Last Dose Time 0001 White Blood Count 8.9 x10^3/uL (4.0-11.0) Red Blood Count 4.67 x10^6/uL (3.50-5.40) Hemoglobin 14.0 g/dL (12.0-15.5) Hematocrit 41.8 % (36.0-47.0) Mean Corpuscular Volume 90 fL (79-100) Mean Corpuscular Hemoglobin 30 pg (25-35) Mean Corpuscular Hemoglobin Concent 33 g/dL (31-37) Red Cell Distribution Width 13.6 % (11.5-14.5) Platelet Count 412 x10^3/uL (140-400) Sodium Level 141 mmol/L (136-145) Potassium Level 4.7 mmol/L (3.5-5.1) Chloride Level 105 mmol/L (98-107) Carbon Dioxide Level 27 mmol/L (21-32) Anion Gap 9 (6-14) Blood Urea Nitrogen 11 mg/dL (7-20) Creatinine 1.1 mg/dL (0.6-1.0) Estimated GFR (Cockcroft-Gault) 50.7 Glucose Level 125 mg/dL (70-99) Calcium Level 9.3 mg/dL (8.5-10.1) Objective: Assessment: 1. Febrile illness prior to admission, none here.Source likely , Improving per pt 2. Abdominal pain, nausea with a CT abdomen and pelvis with contrast at osh showing left renal mass. Working diagnosis is renal abscess, 3. Left renal mass.Working diagnosis of renal abscess. U/S shows increase in lesion since last CT results 2/ s/p IR drainage of purulent bloody drainage cult pending so far 4. History of proteinuria at outside facility.none here 5. Hypertension. 6. Status post cholecystectomy and hysterectomy. 7. Chronic cough 8. Diarrhea Plan: Plan of Care Cont IV daptomycin and Zosyn. PICC line in place f/u cult and labs c diff negative cults pending Pt will need urology evaluation ,not available at this center D/W Discussed with DR Rouse D/W SANDRA MILLER MD Nov 03, 2019 11:24
--- NOTE | 2019-11-03 14:58 | NUR ---
7943 infusion home health nurse her to teach pt about home PICC line infusion care. Pipercillin dose given by her (infusion company provided) so she could teach patient PICC procedure
[2019-11-03] MEDS ORDERED: DAPT350V IV (16:44)
[2019-11-03] MEDS ORDERED: PIPE3.377 IV (16:45)
--- NOTE | 2019-11-03 19:06 | NUR ---
Discharge teaching completed. PICC line teaching done by myself and Rachel M[facility] from [employer] [facility]. The last two pipercillin IV doses given by [facility] in process of teaching patient about home infusion process. Pt was discharged with home infusion equipment and IV medications provided by [employer]. She states that she understands her home medications and teaching and has all of her personal belongings. Pt discharged to home with spouse. Escorted out via w/c by staff.
--- NOTE | 2019-11-03 21:13 | PN ---
DATE: 11/03/2019 SUBJECTIVE: The patient is sitting comfortably in her recliner, in no apparent distress. She denied any complaint except being tired staying here embed in chair. PHYSICAL EXAMINATION: GENERAL: When I examined her, she looked well and was clearly in no apparent respiratory distress. No pallor, jaundice, cyanosis, or thyromegaly. No jugular venous distension. No lower limb edema. VITAL SIGNS: Her heart rate was 113, blood pressure was 141/96, temperature was 98.3, respiratory rate was 18, and oxygen saturation was 98%. NEUROLOGIC: She was awake, alert, responding appropriately. All cranial nerves intact. She moves extremities without difficulty. Ambulates well. She ambulates without assistance or assistive devices. Her intake over the last 24 hours was 3740, no output was recorded. LABORATORY DATA: Her lab work this morning showed a serum sodium 141, potassium 4.7, chloride 105, bicarbonate 27, anion gap of 9, BUN 11, creatinine 1.1, estimated GFR was 50 mL per minute. Her glucose 125 and calcium was 9.3. Her white cell count this morning was 8900, hemoglobin 14, hematocrit 41, MCV 90, and platelet count 412,000. ASSESSMENT: Left renal abscess, status post drainage. PLAN: Continue with IV antibiotic. Await the decision by the Infectious Disease. DENNIS SANDOVAL MD DR: CHRISTIANO/kyler JOB#: [id number] / [id number]
[2019-11-04] MEDS ORDERED: DAPTOmycin (GENERIC) IVPB 400 MG in IV NORMAL SALINE 50ML 50 ML IV SCH (09:00)
== END 2019-11-03 18:15 | disposition home or self-care (01) | DRG 690 ==
LOC: 4 NORTH 13:14
PROVIDERS: ADMIT Internal Medicine; ATTEND Internal Medicine
PROC: 0T913ZX Drainage of Left Kidney, Percutaneous Approach, Diagnostic (ICD-10-PCS; 2019-11-01)
PROC: 02HV33Z Insertion of Infusion Device into Superior Vena Cava, Percutaneous Approach (ICD-10-PCS; principal; 2019-11-02)
PROC: B5181ZA Fluoroscopy of Superior Vena Cava using Low Osmolar Contrast, Guidance (ICD-10-PCS; 2019-11-02)
PROC: B548ZZA Ultrasonography of Superior Vena Cava, Guidance (ICD-10-PCS; 2019-11-02)
DX: N15.1 Renal and perinephric abscess (principal); I10 Essential (primary) hypertension; N28.1 Cyst of kidney, acquired; N28.89 Other specified disorders of kidney and ureter; N39.0 Urinary tract infection, site not specified; Z80.51 Family history of malignant neoplasm of kidney; Z82.49 Family history of ischemic heart disease and other diseases of the circulatory system; Z90.49 Acquired absence of other specified parts of digestive tract; Z90.710 Acquired absence of both cervix and uterus; Z88.8 Allergy status to other drugs, medicaments and biological substances
CPT/HCPCS: 10009; 36415; 36573; 76770; 77001; 80048; 80053; 80202; 81001; 85025; 85027; 85610; 85651; 85730; 86140; 87040; 87071; 87075; 87086; 87102; 87116; 87493; 99152; 99153; C1751; C1892; J0878; J1956; J2250; J2543; J3010; J3370; J7040; J7050; G0378; J7030

== ENCOUNTER 2019-11-12 13:20 | Emergency (ER) | payer BC ==
[~2019-11-12] VITALS: Ht 162.6 cm; Wt 83.0 kg
[~2019-11-12 13:20] MED LIST changes: +DAPT350V IV; +PIPE3.377 IV
[2019-11-12] MEDS ORDERED: DEXAMETHASONE 4 MG TABLET PO ONE (15:45)
[2019-11-12] MEDS ORDERED: diphenhydrAMINE HCL 25 MG CAPSULE PO ONE (15:45)
[2019-11-12] MEDS ORDERED: FAMOTIDINE 20 MG TABLET. PO ONE (15:45)
--- NOTE | 2019-11-12 15:52 | PHYS DOC ---
Past Medical History Past Medical History: Hypertension, Other Additional Past Medical Histor: ecoli, PICC line Past Surgical History: Cholecystectomy, Hysterectomy Smoking Status: Never Smoker Alcohol Use: None Drug Use: None Adult General Chief Complaint Chief Complaint: ALLERGIC REACTION HPI HPI Patient is a 59 year old female who presents with an allergic reaction after receiving IV ceftriaxone through her PICC line on Tuesday. She was recently admitted on 10/30/19 for a renal abscess which was drained and cultured positive for E. Coli. She received IV daptomycin and Zosyn during her admission and received a call from the hospital that her culture is sensitive to Ceftriaxone. She received her first dose of Ceftriaxone on Tuesday, to which she denied any symptoms. Yesterday she developed a pruritic rash with raised lesions around her PICC line site around 1030AM after receiving her Ceftriaxone. She also developed nausea without vomiting, palpitations, and shortness of breath. She denies any chest pain. She reports to having a measured fever of 101.2F this morning by her home nurse. Patient does report known allergy to Keflex. Review of Systems Review of Systems Constitutional: Reports fever; denies chills Eyes: Denies redness or eye pain HENT: Denies nasal congestion or throat/tongue swelling Respiratory: Reports cough and shortness of breath Cardiovascular: Denies chest pain; reports palpitations GI: Reports abdominal bloating and nausea; denies vomiting : Denies dysuria or hematuria Musculoskeletal: Denies back pain or joint pain Integument: Reports rash and raised skin lesions Neurologic: Denies headache, focal weakness or sensory changes Complete systems were reviewed and found to be within normal limits, except as documented in this note. Family History Family History No pertinent family history. Current Medications Current Medications Current Medications Medications (Trade) Dose Ordered Sig/Mell Start Time Stop Time Status Last Admin Dose Admin Ciprofloxacin (Cipro) 500 mg 1X ONCE 11/12/19 16:45 11/12/19 16:46 DC 11/12/19 16:45 500 MG Dexamethasone (Decadron) 10 mg 1X ONCE 11/12/19 15:45 11/12/19 15:46 DC 11/12/19 16:46 10 MG Diphenhydramine HCl (Benadryl) 25 mg 1X ONCE 11/12/19 15:45 11/12/19 15:46 DC 11/12/19 16:45 25 MG Famotidine (Pepcid) 20 mg 1X ONCE 11/12/19 15:45 11/12/19 15:46 DC 11/12/19 16:45 20 MG Allergies Allergies Allergies Coded Allergies Type Severity Reaction Last Updated Verified nitrofurantoin Allergy Mild 11/12/19 Yes oxycodone HCl Adverse Reaction Severe Nausea and Vomiting 10/31/19 Yes Cephalexin Monohydrate Adverse Reaction Intermediate STOMACH PAIN 10/31/19 Yes Physical Exam Physical Exam Constitutional: Well developed, well nourished, no acute distress, non-toxic appearance HENT: Normocephalic, atraumatic, oropharynx moist, tongue normal, handling oral secretions without difficulty Eyes: PERRL, EOMI, conjunctiva normal, no discharge Neck: Normal range of motion, no tenderness, supple Cardiovascular: Heart rate normal, regular rhythm Lungs & Thorax: Bilateral breath sounds clear to auscultation, no wheezing Abdomen: Soft, no tenderness Skin: Warm, dry, no erythema, no rash at PICC line site on right upper extremity. Mild ecchymoses observed around the Right AC region. Back: No tenderness, no CVA tenderness Extremities: No tenderness, ROM intact, no edema Neurologic: Alert and oriented X 3, normal motor function, normal sensory function, no focal deficits noted Psychologic: Affect normal, judgment normal Current Patient Data Vital Signs Vital Signs Date Time Temp Pulse Resp B/P (MAP) Pulse Ox O2 Delivery O2 Flow Rate FiO2 11/12/19 16:31 108 16 154/91 (112) 96 Room Air 11/12/19 14:22 98.1 98.1 Radiology/Procedures Radiology/Procedures [] Course & Med Decision Making Course & Med Decision Making Patient is a 59 yo female who presents to the ED for an allergic reaction to Ceftriaxone. Hx of known allergy to Keflex. She was recently admitted for a renal abscess which was drained and cultured. She was started IV Ceftriaxone by Dr. Norris (Infectious Disease) through her PICC line on her right arm when culture came back positive for E. Coli sensitive to Ceftriaxone. Patient states that she told the ID physician that she is allergic to Cephalexin. In the ED, she was mildly tachycardic in the 110s and short of breath with ambulation. No airway compromise. No facial or tongue swelling. During this stay patient was given Decadron and Benadryl for her allergic reaction and Pepcid for her abdominal pain, which helped relieve her symptoms. Spoke with Dr. Norris (ID) about patient's allergic reaction and he requested we give her a dose of PO Cipro (which culture also noted sensitivity) here in the ED along with a prescription to send her home with and to have her follow up at their office within 14 days of this visit. Patient states she has an appointment with ID at their office this . She was given instructions to take over the counter Benadryl for continued symptoms and she will be given a prescription of steroids for home. Patient stable for discharge home with outpatient follow-up with PCP/ID. Discussed findings and plan with patient and family, who acknowledge understanding and agreement. Dragon Disclaimer Dragon Disclaimer This electronic medical record was generated, in whole or in part, using a voice recognition dictation system. Departure Departure Impression: Primary Impression: Allergic reaction Additional Impression: Renal abscess, left Disposition: HOME, SELF-CARE Condition: STABLE Referrals: ANISH SOLARES (PCP) SANDRA NORRIS MD Patient Instructions: Drug Allergy, [id number] Scripts Prednisone (PREDNISONE) 20 Mg Tablet 2 TAB PO DAILY, #8 TAB Start this prescription tomorrow, Tuesday11/13/19 Prov: PRECIOUS SANDOVAL DO 11/12/19 Ciprofloxacin Hcl (CIPRO) 500 Mg Tablet 1 TAB PO BID for 14 Days, #28 TAB Prov: PRECIOUS SANDOVAL DO 11/12/19 Problem Qualifiers Primary Impression: Allergic reaction Encounter type: initial encounter Qualified Codes: T78.40XA - Allergy, unspecified, initial encounter PRECIOUS SANDOVAL DO Nov 12, 2019 15:52
[2019-11-12 16:31] VITALS: BP 154/91
[2019-11-12] MEDS ORDERED: CIPR500T94 PO (16:39)
[2019-11-12] MEDS ORDERED: CIPROFLOXACIN HCL 250 MG TABLET. PO ONE (16:45)
[2019-11-12] MEDS ORDERED: PRED20TA PO (16:52)
== END 2019-11-12 17:26 | disposition home or self-care (01) ==
LOC: ER 13:20
DX: R14.0 Abdominal distension (gaseous) (principal); T36.1X5A Adverse effect of cephalosporins and other beta-lactam antibiotics, initial encounter; N15.1 Renal and perinephric abscess; R11.0 Nausea; R00.2 Palpitations; R50.9 Fever, unspecified; R06.02 Shortness of breath; R21 Rash and other nonspecific skin eruption; I10 Essential (primary) hypertension; Z90.49 Acquired absence of other specified parts of digestive tract; Z90.710 Acquired absence of both cervix and uterus; Z79.899 Other long term (current) drug therapy; Z88.1 Allergy status to other antibiotic agents; Z88.5 Allergy status to narcotic agent; Y92.89 Other specified places as the place of occurrence of the external cause
CPT/HCPCS: 99284; J8540; Q0163

== ENCOUNTER → 2019-11-21 | Outpatient (CLI) | payer BC ==
[2019-11-12 16:31] VITALS: BP 154/91
[~2019-11-21] MED LIST changes: +CIPR500T94 PO; +IOHEXOL 300 MG/ML 100ML VIAL. IV ONE; +PRED20TA PO
--- NOTE | 2019-11-21 12:16 | RAD ---
EXAM: CT Abdomen with IV contrast INDICATION: Follow-up renal abscess. TECHNIQUE: Multi-detector row CT images were acquired from the lung bases through the abdomen with the use of IV contrast. Sagittal and coronal images were acquired from the transaxial data. All CT scans performed at this facility utilize dose optimization techniques as appropriate to the exam, including the following: Automated exposure control and adjustment of the mA and/or KV according to patient size (this includes techniques or standardized protocols for targeted exams where dose is indication/reason for exam). IV CONTRAST: Administered ORAL CONTRAST: Not administered COMPARISON: Abdomen pelvis CT with oral and IV contrast of 10/29/2019 , CT guided drainage procedure of 11/01/[address] with oral and IV contrast of 10/23/2013. FINDINGS: LOWER CHEST: Borderline enlargement 1.3 cm right paraesophageal lymph node (image 151 on axial series 2) partially imaged. Mosaic attenuation to the lung parenchyma, suggesting air trapping or small airways disease. Mild cardiac enlargement. No pericardial effusion. No suspicious lung nodules in the included lung bases. LIVER: Unremarkable BILIARY SYSTEM: Gallbladder is surgically absent. Bile ducts are not dilated. PANCREAS: Unremarkable SPLEEN: Unremarkable ADRENALS: Unremarkable KIDNEYS & URETERS: The previously reported 4 cm inferior pole left renal mass has since resolved, consistent with successful drainage of a left inferior pole renal abscess. Multiple low-density lesions in both kidneys are again identified, consistent with benign hepatic cysts. At the superior pole right kidney, best appreciated on axial image 32 of 51 on series 2, a 1.9 cm soft tissue mass in the superior right renal pole hilum shows only slight interval increase in size from the comparison CT of 2013, over 6 years ago. GASTROINTESTINAL: The stomach, small bowel, and colon are unremarkable. The appendix is normal. MESENTERY/PERITONEUM/RETROPERITONEUM: Unremarkable VASCULAR: Unremarkable LYMPH NODES: No adenopathy OSSEOUS & SOFT TISSUES: Unremarkable IMPRESSION: 1. Resolved inferior pole left renal abscess, with residual multiple bilateral renal cortical cysts still present. 2. 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 A urologic consultation could be of benefit in determining the need for (and timing of) any surgical intervention. FOR INTERNAL CODING PURPOSES Critical result: Findings discussed with PILO NORRIS at 11/21/2019 11:54 AM. RESULT CODE: (C) Electronically signed by: Jing Christensen MD (11/21/2019 12:13 PM) [facility]
== END ==
LOC: CT 09:11
PROVIDERS: ATTEND Internal Medicine Infectious Disease
DX: I51.7 Cardiomegaly (principal); N28.89 Other specified disorders of kidney and ureter; Z90.49 Acquired absence of other specified parts of digestive tract
CPT/HCPCS: 74160; Q9967